=== PATIENT | male | born 1995 | race Two or more races ===

== ENCOUNTER 2017-01-22 14:07 | Emergency (ER) | payer MEDICAID, OTHER ==
[~2017-01-22] VITALS: Ht 172.7 cm; Wt 60.3 kg
[2017-01-22 14:12] VITALS: BP 152/83
[2017-01-22] MEDS ORDERED: HYDROcodone/APAP 5/325 TABLET PO ONE (16:00)
[2017-01-22] MEDS ORDERED: HYDROcodone/APAP 5/325 TABLET ONE (16:23)
== END 2017-01-22 16:50 | disposition home or self-care (01) ==
LOC: ED 16:44
DX: S06.0X0A Concussion without loss of consciousness, initial encounter (principal); W22.8XXA Striking against or struck by other objects, initial encounter; Y93.89 Activity, other specified; Y99.8 Other external cause status; Y92.69 Other specified industrial and construction area as the place of occurrence of the external cause
CPT/HCPCS: 70450; 99284